=== PATIENT | female | born 1990 | race Caucasian/White ===

== ENCOUNTER 2021-09-09 09:06 | Emergency (ER) | payer OTHER ==
[~2021-09-09 09:06] MED LIST: VENTOLIN HFA 66.7 GM INH
[2021-09-09 10:45] LABS: HEMOGLOBIN 12.3 gm/dl (12.3-15.3); RED BLOOD COUNT 4.46 M/UL (4.00-5.10); WHITE BLOOD COUNT 7.6 K/UL (4.5-11.0)
[2021-09-09 11:08] LABS: BUN/CREATININE RATIO 13 (0-10)
== END 2021-09-09 13:18 | disposition home or self-care (01) ==
LOC: ER1 09:06
PROVIDERS: Emergency Medicine
DX: R06.00 Dyspnea, unspecified (principal); M79.89 Other specified soft tissue disorders; Z90.710 Acquired absence of both cervix and uterus; I10 Essential (primary) hypertension
CPT/HCPCS: 71046; 80053; 82550; 82553; 83874; 83880; 84484; 85025; 85379; 93005; 99285